=== PATIENT | female | born 1985 | race Caucasian/White ===

== ENCOUNTER 2016-09-20 18:35 | Emergency (ER) | payer MEDICAID, OTHER ==
[~2016-09-20] VITALS: Ht 180.3 cm; Wt 120.7 kg
[~2016-09-20 18:35] MED LIST: CEPHALEXIN500 M2 PO; CIPRO500 MG PO; COLACE100 MG PO; NAPROSYN500 MG PO; NORCO 325 MG-51 TAB PO; PEPCID20 M1 PO; SYNTHROID0.15 M1 PO
[2016-09-20 19:00] VITALS: BP 130/78
--- NOTE | 2016-09-20 19:45 | NUR ---
PATIENT PRESENTS TO ED WITH C/O RT SIDE ABD PAIN AND PAINFUL URINATION . PT DENIES N/V/D; SKIN IS PINK/WARM/DRY; AAOX4 WITH EVEN AND STEADY GAIT; LUNGS CLEAR BL; HR EVEN AND REGULAR; PT DENIES ANY FEVER, CP, SOB, OR COUGH AT THIS TIME; PATIENT STATES PAIN OF 8/10 AT THIS TIME; VSS; PATIENT POSITIONED FOR COMFORT; HOB ELEVATED; BEDRAILS UP X2; BED DOWN. ER MD MADE AWARE OF PT STATUS.
--- NOTE | 2016-09-20 20:22 | NUR ---
PELVIC EXAM BY DR BARKER, PT TOLERATED WELL.
[2016-09-20] MEDS ORDERED: KETOROLAC 60 MG/2 ML VIAL IM ONE (20:25)
--- NOTE | 2016-09-20 21:15 | NUR ---
Patient discharged with v/s stable. Written and verbal after care instructions given and explained. Patient verbalized understanding. Ambulatory with steady gait. All questions addressed prior to discharge. Advised to follow up with PMD. DISCHARGED BY DR BARKER
[2016-09-20 21:24] VITALS: BP 130/78
== END 2016-09-20 21:15 | disposition home or self-care (01) ==
LOC: MED 18:35
DX: N76.0 Acute vaginitis (principal); E03.9 Hypothyroidism, unspecified; Z88.2 Allergy status to sulfonamides; Z88.1 Allergy status to other antibiotic agents
CPT/HCPCS: 36415; 81002; 81025; 87070; 87210; 87491; 96372; 99284; J1885

== ENCOUNTER 2017-01-14 23:46 | Emergency (ER) | payer MEDICAID ==
[~2017-01-14] VITALS: Ht 180.3 cm; Wt 126.6 kg
[~2017-01-14 23:46] MED LIST changes: +ACET-2869 PO; -CEPHALEXIN500 M2 PO; -CIPRO500 MG PO; -COLACE100 MG PO; +DOCU-300 PO; +FAMO-90 PO; -NAPROSYN500 MG PO; -NORCO 325 MG-51 TAB PO; -PEPCID20 M1 PO; -SYNTHROID0.15 M1 PO
[2017-01-15 00:07] VITALS: BP 128/74
--- NOTE | 2017-01-15 00:26 | NUR ---
PT TAKEN TO BED 3
--- NOTE | 2017-01-15 00:40 | NUR ---
31Y F BIB FAMILY C/O LEFT FLANK PAIN RADIATING TO LEFT UPPER QUADRANT X YESTERDAY 0300; +N/V. PT DENIES ANY SOB,CP AT THE MOMENT. PT STATES PAIN IS SHARP. PT AAOX4. BREATHING IS UNLABORED AND CLEAR BILAT. PT STATES SHE TOOK MOTRIN 800MG X2 THIS AM BUT NO RELIEF. 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
[2017-01-15] MEDS ORDERED: KETOROLAC 30 MG/ML VIAL IM ONE (00:50)
[2017-01-15 01:00] LABS: BASOPHILS # (AUTO) 0.3 K/uL (0.00-0.22); BASOPHILS % (AUTO) 2.6 % (0.0-2.0); EOSINOPHILS # (AUTO) 0.2 K/uL (0-0.4); EOSINOPHILS % (AUTO) 1.8 % (0.0-4.0); LYMPHOCYTES # (AUTO) 2.6 K/uL (2.5-16.5); LYMPHOCYTES % (AUTO) 26.3 % (20.5-51.1); MEAN CORPUSCULAR HEMOGLOBIN 27 pg (27-31); MEAN CORPUSCULAR HGB CONC 32 g/dL (33-37); MEAN CORPUSCULAR VOLUME 86 fL (80-94); MONOCYTES # (AUTO) 0.7 K/uL (0.8-1.0); MONOCYTES % (AUTO) 7.2 % (1.7-9.3); NEUTROPHILS % (AUTO) 62.1 % (42.2-75.2); PLATELET COUNT (AUTO) 250 K/uL (140-450); RED BLOOD CELL COUNT(AUTO) 4.77 MIL/uL (4.20-5.40); RED CELL DISTRIBUTION WIDTH 13.4 % (11.6-13.7); WHITE BLOOD COUNT (AUTO) 9.8 K/uL (4.8-10.8)
[2017-01-15 01:02] LABS: APPEARANCE,URINE CLEAR (CLEAR); BILIRUBIN,URINE NEGATIVE (NEGATIVE); BLOOD, URINE 1+ (NEGATIVE); COLOR,URINE YELLOW (YELLOW); LEUKOCYTE ESTERASE ,URINE 2+ (NEGATIVE); NITRITE, URINE NEGATIVE (NEGATIVE); UGLUCOSE NEGATIVE (NEGATIVE)
[2017-01-15 01:15] LABS: ANION GAP 11.3 (8-16); CARBON DIOXIDE 25.6 mmol/L (21-32); POTASSIUM 3.9 mmol/L (3.5-5.1)
[2017-01-15 01:16] LABS: RBC,URINE 3-10 (FEW) /HPF (0-5); WBC,URINE 16-25 (MOD) /HPF (0-5)
[2017-01-15 01:20] LABS: ALBUMIN 3.4 g/dL (3.4-5.0); TOTAL BILIRUBIN 0.1 mg/dL (0.0-1.0)
--- NOTE | 2017-01-15 01:39 | NUR ---
Patient discharged with v/s stable. Written and verbal after care instructions given and explained. Patient alert, oriented and verbalized understanding of instructions. Ambulatory with steady gait. All questions addressed prior to discharge. ID band removed. Patient advised to follow up with PMD. Rx of CIPRO 250MG given. Patient educated on indication of medication including possible reaction and side effects. Opportunity to ask questions provided and answered.
[2017-01-15 01:40] VITALS: BP 117/76
== END 2017-01-15 01:39 | disposition home or self-care (01) ==
LOC: MED 23:46
DX: N39.0 Urinary tract infection, site not specified (principal); E03.9 Hypothyroidism, unspecified; Z88.2 Allergy status to sulfonamides; Z88.8 Allergy status to other drugs, medicaments and biological substances; Z79.899 Other long term (current) drug therapy
CPT/HCPCS: 36415; 80053; 81001; 81025; 85025; 87086; 99284; J1885

== ENCOUNTER 2017-03-08 02:01 | Emergency (ER) | payer MEDICAID ==
[~2017-03-08] VITALS: Ht 185.4 cm; Wt 128.8 kg
[2017-03-08 02:07] VITALS: BP 143/86
--- NOTE | 2017-03-08 02:10 | NUR ---
AMBULATED TO ER BED 2
--- NOTE | 2017-03-08 02:15 | NUR ---
PATIENT IS A 32 Y/O FEMALE WHO PRESENTS TO THE ED C/O PELVIC PAIN. PT STATES, "I WENT TO THE RESTROOM AND TWO PIECES OF PINKISH STUFF CAME OUT." PT REPORTS 7/10 THROBBING PAIN ON THE BACK AND PELVIC AREA THAT DOES NOT RADIATE. PT DENIES CP, SOB, DIARRHEA, REPORTS NAUSEA/DIARRHEA. PT AAOX4, RR EVEN/UNLABORED. PT REPOSITIONED FOR COMFORT, BED IN LOWEST POSITION. ER MD DR. ORTEZ NOTIFIED. WILL CONTINUE TO MONITOR.
[2017-03-08 02:21] LABS: BASOPHILS # (AUTO) 0.4 K/uL (0.00-0.22); BASOPHILS % (AUTO) 3.8 % (0.0-2.0); EOSINOPHILS # (AUTO) 0.1 K/uL (0-0.4); EOSINOPHILS % (AUTO) 0.9 % (0.0-4.0); HEMATOCRIT 43.6 % (36-48); HEMOGLOBIN 14.1 g/dL (12.0-16.0); LYMPHOCYTES # (AUTO) 2.2 K/uL (2.5-16.5); LYMPHOCYTES % (AUTO) 21.8 % (20.5-51.1); MEAN CORPUSCULAR HEMOGLOBIN 28 pg (27-31); MEAN CORPUSCULAR HGB CONC 32 g/dL (33-37); MEAN CORPUSCULAR VOLUME 86 fL (80-94); NEUTROPHILS # (AUTO) 6.2 K/uL (1.8-7.7); NEUTROPHILS % (AUTO) 63.5 % (42.2-75.2); PLATELET COUNT (AUTO) 251 K/uL (140-450); RED BLOOD CELL COUNT(AUTO) 5.07 MIL/uL (4.20-5.40); RED CELL DISTRIBUTION WIDTH 13.2 % (11.6-13.7); WHITE BLOOD COUNT (AUTO) 9.9 K/uL (4.8-10.8)
[2017-03-08 02:33] LABS: ANION GAP 9.6 (8-16); CARBON DIOXIDE 29.2 mmol/L (21-32); CREATININE 0.9 mg/dL (0.6-1.3); POTASSIUM 4.8 mmol/L (3.5-5.1)
[2017-03-08 02:39] LABS: ALBUMIN 3.4 g/dL (3.4-5.0); TOTAL BILIRUBIN 0.2 mg/dL (0.0-1.0)
--- NOTE | 2017-03-08 03:15 | NUR ---
PATIENT RESTING AT THIS TIME. NO SIGNS OF DISTRESS.
[2017-03-08 03:18] LABS: APPEARANCE,URINE SL CLOUDY (CLEAR); BILIRUBIN,URINE NEGATIVE (NEGATIVE); BLOOD, URINE 1+ (NEGATIVE); COLOR,URINE YELLOW (YELLOW); LEUKOCYTE ESTERASE ,URINE NEGATIVE (NEGATIVE); NITRITE, URINE NEGATIVE (NEGATIVE); UGLUCOSE NEGATIVE (NEGATIVE)
[2017-03-08 03:25] LABS: RBC,URINE 11-20 (MOD) /HPF (0-5); WBC,URINE 0-5 (RARE) /HPF (0-5)
[2017-03-08 04:10] VITALS: BP 137/89
--- NOTE | 2017-03-08 04:10 | NUR ---
Patient discharged with v/s stable. Written and verbal after care instructions given and explained. Patient alert, oriented and verbalized understanding of instructions. Ambulatory with steady gait. All questions addressed prior to discharge. ID band removed. Patient advised to follow up with PMD. Rx of TYLENOL EXTRA STRENGTH 500MG given. Patient educated on indication of medication including possible reaction and side effects. Opportunity to ask questions provided and answered.
== END 2017-03-08 04:10 | disposition home or self-care (01) ==
LOC: MED 02:01
DX: O46.91 Antepartum hemorrhage, unspecified, first trimester (principal); E03.9 Hypothyroidism, unspecified; Z3A.01 Less than 8 weeks gestation of pregnancy; Z79.899 Other long term (current) drug therapy; Z88.2 Allergy status to sulfonamides; Z88.8 Allergy status to other drugs, medicaments and biological substances
CPT/HCPCS: 36415; 76801; 80053; 81001; 81025; 84702; 85025; 86900; 86901; 99285; Q0092

== ENCOUNTER 2017-05-16 08:36 | Emergency (ER) | payer MEDICAID ==
[~2017-05-16] VITALS: Ht 180.3 cm; Wt 131.6 kg
[2017-05-16 08:50] VITALS: BP 118/82
--- NOTE | 2017-05-16 08:56 | NUR ---
Pt taken to bed 11.
--- NOTE | 2017-05-16 09:00 | NUR ---
32/F BIB BOYFRIEND c/o awoke with am with bilateral hands orange/yellow, urine smell to them denies contact with dye or food coloring. PT STATED PREG 4 WKS. followed by unit care in [place]. 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 rx---- vitamins, folic acid, calcium, DENIES N/V/D; AAOX4 WITH EVEN AND STEADY GAIT; LUNGS CLEAR BL;PT DENIES ANY FEVER, CP, SOB, OR COUGH AT THIS TIME; PATIENT STATES PAIN OF 0/10 AT THIS TIME;PATIENT POSITIONED FOR COMFORT; HOB ELEVATED; BEDRAILS UP X2; BED DOWN. ER MD MADE AWARE OF PT STATUS.
--- NOTE | 2017-05-16 09:53 | NUR ---
PT TAKEN TO US VIA W/C, ACCOMPANIED BY TECH.
[2017-05-16 10:13] LABS: BASOPHILS # (AUTO) 0.3 K/uL (0.00-0.22); BASOPHILS % (AUTO) 4.2 % (0.0-2.0); EOSINOPHILS # (AUTO) 0.1 K/uL (0-0.4); EOSINOPHILS % (AUTO) 1.3 % (0.0-4.0); HEMATOCRIT 41.7 % (36-48); HEMOGLOBIN 13.7 g/dL (12.0-16.0); LYMPHOCYTES # (AUTO) 1.3 K/uL (2.5-16.5); LYMPHOCYTES % (AUTO) 18.2 % (20.5-51.1); MEAN CORPUSCULAR HEMOGLOBIN 28 pg (27-31); MEAN CORPUSCULAR HGB CONC 33 g/dL (33-37); MEAN CORPUSCULAR VOLUME 85 fL (80-94); MONOCYTES # (AUTO) 0.6 K/uL (0.8-1.0); MONOCYTES % (AUTO) 8.8 % (1.7-9.3); NEUTROPHILS # (AUTO) 4.8 K/uL (1.8-7.7); NEUTROPHILS % (AUTO) 67.5 % (42.2-75.2); PLATELET COUNT (AUTO) 246 K/uL (140-450); RED BLOOD CELL COUNT(AUTO) 4.92 MIL/uL (4.20-5.40); RED CELL DISTRIBUTION WIDTH 13.8 % (11.6-13.7); WHITE BLOOD COUNT (AUTO) 7.1 K/uL (4.8-10.8)
[2017-05-16 10:37] LABS: ANION GAP 12.6 (8-16); CREATININE 0.8 mg/dL (0.6-1.3); POTASSIUM 4.6 mmol/L (3.5-5.1)
[2017-05-16 10:39] LABS: PROTHROMBIN TIME 10.4 secs (10.8-13.4)
[2017-05-16 10:56] LABS: TOTAL BILIRUBIN 0.4 mg/dL (0.0-1.0)
[2017-05-16 10:57] LABS: ALBUMIN 3.2 g/dL (3.4-5.0)
[2017-05-16 12:01] LABS: APPEARANCE,URINE CLOUDY (CLEAR); BILIRUBIN,URINE NEGATIVE (NEGATIVE); BLOOD, URINE TRACE-I (NEGATIVE); COLOR,URINE YELLOW (YELLOW); LEUKOCYTE ESTERASE ,URINE 2+ (NEGATIVE); NITRITE, URINE NEGATIVE (NEGATIVE); PH,URINE 5.5 (5.0-9.0); UGLUCOSE NEGATIVE (NEGATIVE)
[2017-05-16 12:08] VITALS: BP 110/70
--- NOTE | 2017-05-16 12:08 | NUR ---
Patient discharged with v/s stable. Written and verbal after care instructions given and explained. Patient verbalized understanding. Ambulatory with steady gait. All questions addressed prior to discharge. Advised to follow up with PMD.
[2017-05-16 12:57] LABS: RBC,URINE NONE SEEN /HPF (0-5); URINE AMORPHOUS URATE 2+ /HPF (None Seen)
== END 2017-05-16 12:08 | disposition home or self-care (01) ==
LOC: MED 08:36
DX: O26.891 Other specified pregnancy related conditions, first trimester (principal); Z3A.01 Less than 8 weeks gestation of pregnancy; Z88.2 Allergy status to sulfonamides
CPT/HCPCS: 36415; 76801; 80053; 81001; 81025; 83690; 84702; 85025; 85610; 87086; 99285

== ENCOUNTER 2017-07-17 01:51 | Emergency (ER) | payer MEDICAID ==
[~2017-07-17] VITALS: Ht 182.9 cm; Wt 132.7 kg
[2017-07-17 01:55] VITALS: BP 114/74
[2017-07-17] MEDS ORDERED: MORPHINE SULFATE 4 MG/ML SYR IVP ONE (02:30)
[2017-07-17 02:32] LABS: BASOPHILS # (AUTO) 0.3 K/uL (0.00-0.22); BASOPHILS % (AUTO) 3.5 % (0.0-2.0); EOSINOPHILS # (AUTO) 0.1 K/uL (0-0.4); EOSINOPHILS % (AUTO) 1.3 % (0.0-4.0); HEMATOCRIT 39.1 % (36-48); HEMOGLOBIN 12.8 g/dL (12.0-16.0); LYMPHOCYTES # (AUTO) 2.2 K/uL (2.5-16.5); LYMPHOCYTES % (AUTO) 23.1 % (20.5-51.1); MEAN CORPUSCULAR HEMOGLOBIN 27 pg (27-31); MEAN CORPUSCULAR HGB CONC 33 g/dL (33-37); MEAN CORPUSCULAR VOLUME 84 fL (80-94); MONOCYTES # (AUTO) 0.8 K/uL (0.8-1.0); MONOCYTES % (AUTO) 8.3 % (1.7-9.3); NEUTROPHILS # (AUTO) 6.2 K/uL (1.8-7.7); NEUTROPHILS % (AUTO) 63.8 % (42.2-75.2); PLATELET COUNT (AUTO) 278 K/uL (140-450); RED BLOOD CELL COUNT(AUTO) 4.67 MIL/uL (4.20-5.40); WHITE BLOOD COUNT (AUTO) 9.6 K/uL (4.8-10.8)
[2017-07-17 02:37] LABS: APPEARANCE,URINE CLEAR (CLEAR); BILIRUBIN,URINE NEGATIVE (NEGATIVE); BLOOD, URINE TRACE-I (NEGATIVE); COLOR,URINE YELLOW (YELLOW); LEUKOCYTE ESTERASE ,URINE 1+ (NEGATIVE); NITRITE, URINE NEGATIVE (NEGATIVE); UGLUCOSE NEGATIVE (NEGATIVE)
[2017-07-17 02:46] LABS: RBC,URINE 0-5 (RARE) /HPF (0-5)
[2017-07-17 02:46] LABS: ANION GAP 7.6 (8-16); CARBON DIOXIDE 28.1 mmol/L (21-32); POTASSIUM 3.7 mmol/L (3.5-5.1)
[2017-07-17 02:52] LABS: ALBUMIN 3.1 g/dL (3.4-5.0); TOTAL BILIRUBIN 0.1 mg/dL (0.0-1.0)
[2017-07-17 03:46] VITALS: BP 114/74
== END 2017-07-17 03:47 | disposition home or self-care (01) ==
LOC: MED 01:51
DX: N39.0 Urinary tract infection, site not specified (principal); E03.9 Hypothyroidism, unspecified; F17.210 Nicotine dependence, cigarettes, uncomplicated; Z88.2 Allergy status to sulfonamides; Z88.8 Allergy status to other drugs, medicaments and biological substances; Z90.49 Acquired absence of other specified parts of digestive tract
CPT/HCPCS: 36415; 74176; 80053; 81001; 81025; 83690; 85025; 87086; 96374; 99285; J2270

== ENCOUNTER 2017-08-19 09:55 | Emergency (ER) | payer MEDICAID ==
[~2017-08-19] VITALS: Ht 182.9 cm; Wt 135.7 kg
[2017-08-19 10:01] VITALS: BP 142/84
--- NOTE | 2017-08-19 10:10 | NUR ---
PT. CAME IN TO ED W/ C/O BURNING UPON URINATION AND FREQUENCY FOR 2 WEEKS . PT STATES " I WENT TO [facility] 2 WEEKS AGO THEY TOLD ME I HAD A UTI AND GIVEN MICROBID AND KEFLEX , I HAVE NOT FINISHED THE ANTIBIOTICS YET AND I STILL HAVE BURNING WHEN I URINATE, AND SOME DISCOMFORT BUT NO PAIN AT THE MOMENT. ALSO I HAVE BEEN NAUSEAS AND VOMITING FOR 5 DAYS." 0/10 PAIN AT THIS MOMENT. DENIES SOB, DENIES CHEST PAIN, RR EVEN AND UNLABORED.AAOX4. ER MD NOTIFIED. WILL CONTINUE TO MONITOR, SAFETY PRECAUTIONS INITIATED.
--- NOTE | 2017-08-19 10:11 | NUR ---
PT AMB TO ER BED 11
[2017-08-19] MEDS ORDERED: ONDANSETRON 4 MG ODT PO ONE (10:15)
--- NOTE | 2017-08-19 10:24 | NUR ---
pt refused zofran odt; states " i don't feel nauseous rt now" .will continue to monitor pt.
[2017-08-19 10:33] LABS: BILIRUBIN,URINE NEGATIVE (NEGATIVE); BLOOD, URINE 1+ (NEGATIVE); LEUKOCYTE ESTERASE ,URINE TRACE (NEGATIVE); NITRITE, URINE NEGATIVE (NEGATIVE); PH,URINE 6.5 (5.0-9.0); UGLUCOSE NEGATIVE (NEGATIVE)
[2017-08-19 10:34] LABS: COLOR,URINE YELLOW (YELLOW)
[2017-08-19 10:39] LABS: APPEARANCE,URINE HAZY (CLEAR); RBC,URINE 0-5 (RARE) /HPF (0-5); WBC,URINE 0-5 (RARE) /HPF (0-5)
[2017-08-19 11:12] VITALS: BP 142/84
--- NOTE | 2017-08-19 11:12 | NUR ---
Patient discharged with v/s stable. Written and verbal after care instructions given and explained. Patient alert, oriented and verbalized understanding of instructions. Ambulatory with steady gait. All questions addressed prior to discharge. ID band removed. Patient advised to follow up with PMD. Rx of Phenergan given. Patient educated on indication of medication including possible reaction and side effects. Opportunity to ask questions provided and answered.
== END 2017-08-19 11:12 | disposition home or self-care (01) ==
LOC: MED 09:55
DX: O23.41 Unspecified infection of urinary tract in pregnancy, first trimester (principal); O21.8 Other vomiting complicating pregnancy; Z3A.08 8 weeks gestation of pregnancy; E03.9 Hypothyroidism, unspecified; Z88.2 Allergy status to sulfonamides; Z88.8 Allergy status to other drugs, medicaments and biological substances; Z90.49 Acquired absence of other specified parts of digestive tract
CPT/HCPCS: 81001; 81025; 87086; 99284; S0119

== ENCOUNTER 2017-09-08 15:15 | Emergency (ER) | payer MEDICAID ==
[~2017-09-08] VITALS: Ht 182.9 cm; Wt 137.0 kg
[2017-09-08 15:20] VITALS: BP 130/80
--- NOTE | 2017-09-08 15:41 | NUR ---
32Y/F BIB SELF C/O EPIGASTRIC PAIN W/ N/V X 1 DAY. PT STATES SHE IS APPROXIAMTELY 11 WEEKS OB+. G7, P1, A3, L3. AAOX4 WITH EVEN AND STEADY GAIT; PATIENT STATES PAIN OF 6/10 AT THIS TIME; VSS; PATIENT POSITIONED FOR COMFORT; HOB ELEVATED; BEDRAILS UP X1; BED DOWN. ER MD MADE AWARE OF PT STATUS.
[2017-09-08] MEDS ORDERED: NACL 0.9% 1,000 ML IV SCH (15:44)
[2017-09-08] MEDS ORDERED: PROMETHAZINE 25 MG/ML VIAL IM ONE (15:45)
[2017-09-08] MEDS ORDERED: ALUMINUM HYD/MAG/SIMETHICONE 30 ML, DICYCLOMINE HCL LIQUID 20 MG, LIDOCAINE VISCOUS 2% ... PO ONE ×3 (15:45)
[2017-09-08] MEDS ORDERED: ONDANSETRON 4 MG/2 ML VIAL IVP ONE (15:45)
[2017-09-08 16:11] LABS: BASOPHILS # (AUTO) 0.1 K/uL (0.00-0.22); BASOPHILS % (AUTO) 0.7 % (0.0-2.0); EOSINOPHILS # (AUTO) 0.1 K/uL (0-0.4); EOSINOPHILS % (AUTO) 0.9 % (0.0-4.0); HEMATOCRIT 42.7 % (36-48); HEMOGLOBIN 13.9 g/dL (12.0-16.0); LYMPHOCYTES # (AUTO) 2.2 K/uL (2.5-16.5); LYMPHOCYTES % (AUTO) 23.9 % (20.5-51.1); MEAN CORPUSCULAR HEMOGLOBIN 27 pg (27-31); MEAN CORPUSCULAR HGB CONC 33 g/dL (33-37); MEAN CORPUSCULAR VOLUME 83.7 fL (80-94); MONOCYTES # (AUTO) 0.8 K/uL (0.8-1.0); MONOCYTES % (AUTO) 9.3 % (1.7-9.3); NEUTROPHILS # (AUTO) 5.9 K/uL (1.8-7.7); NEUTROPHILS % (AUTO) 65.2 % (42.2-75.2); PLATELET COUNT (AUTO) 278 K/uL (140-450); RED BLOOD CELL COUNT(AUTO) 5.11 MIL/uL (4.20-5.40); RED CELL DISTRIBUTION WIDTH 14.9 % (11.6-13.7); WHITE BLOOD COUNT (AUTO) 9.1 K/uL (4.8-10.8)
[2017-09-08 16:14] LABS: APPEARANCE,URINE HAZY (CLEAR); BILIRUBIN,URINE NEGATIVE (NEGATIVE); BLOOD, URINE 1+ (NEGATIVE); COLOR,URINE YELLOW (YELLOW); LEUKOCYTE ESTERASE ,URINE TRACE (NEGATIVE); NITRITE, URINE NEGATIVE (NEGATIVE); UGLUCOSE NEGATIVE (NEGATIVE)
[2017-09-08 16:23] LABS: ANION GAP 12.7 (8-16); CARBON DIOXIDE 28.4 mmol/L (21-32); CREATININE 0.8 mg/dL (0.6-1.3); POTASSIUM 4.1 mmol/L (3.5-5.1)
[2017-09-08 16:29] LABS: TOTAL BILIRUBIN 0.2 mg/dL (0.0-1.0)
[2017-09-08 16:38] LABS: RBC,URINE 3-10 (FEW) /HPF (0-5); WBC,URINE 0-5 (RARE) /HPF (0-5)
[2017-09-08 17:11] VITALS: BP 119/88
== END 2017-09-08 17:10 | disposition home or self-care (01) ==
LOC: MED 15:15
DX: O99.611 Diseases of the digestive system complicating pregnancy, first trimester (principal); Z3A.11 11 weeks gestation of pregnancy; Z90.89 Acquired absence of other organs; Z88.1 Allergy status to other antibiotic agents; Z88.2 Allergy status to sulfonamides
CPT/HCPCS: 36415; 80053; 81001; 82150; 83690; 85025; 96361; 96372; 96374; 99284; J2405; J2550

== ENCOUNTER 2017-09-28 21:31 | Emergency (ER) | payer MEDICAID ==
[~2017-09-28] VITALS: Ht 182.9 cm; Wt 136.5 kg
[2017-09-28 21:33] VITALS: BP 145/61
--- NOTE | 2017-09-28 21:39 | NUR ---
PT TAKEN TO US VIA WHEELCHAIR
--- NOTE | 2017-09-28 21:40 | NUR ---
Robyn edward in [facility] - 09/28/17 at 2140 by VICK PT TAKEN TO ULTRASOUND
--- NOTE | 2017-09-28 22:02 | NUR ---
PT RETURN FROM ULTRA SOUND TO ER BED 7
--- NOTE | 2017-09-28 22:10 | NUR ---
PATIENT IS A 32 Y/O FEMALE WHO PRESENTS TO THE ED C/O BILATERAL FLANK PAIN. PT STATES SHE IS WITH TWINS AND H/O OF KIDNEY INFECTIONS. PT REPORTS 6/10 ACHING BILATERAL FLANK PAIN THAT DOES NOT RADIATE. PT DENIES BLEEDING. PT DENIES CP, SOB, N/V/D. PT AAOX4, RR EVEN/UNLABORED. PT REPOSITIONED FOR COMFORT, BED IN LOWEST POSITION. ER MD DR. ORTEZ NOTIFIED. WILL CONTINUE TO MONITOR.
[2017-09-28 22:12] LABS: BILIRUBIN,URINE NEGATIVE (NEGATIVE); BLOOD, URINE 1+ (NEGATIVE); COLOR,URINE YELLOW (YELLOW); LEUKOCYTE ESTERASE ,URINE NEGATIVE (NEGATIVE); NITRITE, URINE NEGATIVE (NEGATIVE); UGLUCOSE NEGATIVE (NEGATIVE)
--- NOTE | 2017-09-28 22:13 | NUR ---
Dr. Rizvi evaluating patient at bedside.
[2017-09-28 22:18] LABS: APPEARANCE,URINE SLIGHTLY HAZY (CLEAR)
[2017-09-28 22:22] LABS: RBC,URINE 0-5 (RARE) /HPF (0-5)
[2017-09-28 22:50] LABS: BASOPHILS % (AUTO) 0.2 % (0.0-2.0); EOSINOPHILS # (AUTO) 0.1 K/uL (0-0.4); EOSINOPHILS % (AUTO) 1.1 % (0.0-4.0); HEMATOCRIT 39.3 % (36-48); HEMOGLOBIN 12.8 g/dL (12.0-16.0); LYMPHOCYTES # (AUTO) 1.9 K/uL (2.5-16.5); LYMPHOCYTES % (AUTO) 24.2 % (20.5-51.1); MEAN CORPUSCULAR HEMOGLOBIN 27 pg (27-31); MEAN CORPUSCULAR HGB CONC 33 g/dL (33-37); MEAN CORPUSCULAR VOLUME 83.8 fL (80-94); MONOCYTES # (AUTO) 0.6 K/uL (0.8-1.0); MONOCYTES % (AUTO) 7.9 % (1.7-9.3); NEUTROPHILS # (AUTO) 5.2 K/uL (1.8-7.7); NEUTROPHILS % (AUTO) 66.6 % (42.2-75.2); PLATELET COUNT (AUTO) 250 K/uL (140-450); RED BLOOD CELL COUNT(AUTO) 4.69 MIL/uL (4.20-5.40); RED CELL DISTRIBUTION WIDTH 14.5 % (11.6-13.7); WHITE BLOOD COUNT (AUTO) 7.8 K/uL (4.8-10.8)
[2017-09-28 22:54] LABS: ANION GAP 11.8 (8-16); CARBON DIOXIDE 26.1 mmol/L (21-32); CREATININE 0.7 mg/dL (0.6-1.3); POTASSIUM 3.9 mmol/L (3.5-5.1)
[2017-09-28] MEDS ORDERED: NITROFURANTOIN 100 MG CAP PO ONE (23:15)
[2017-09-28] MEDS ORDERED: ACETAMINOPHEN EXTRA STRENGTH 500 MG TAB PO ONE (23:15)
--- NOTE | 2017-09-28 23:15 | NUR ---
MACROBID NOT AVAILABLE IN [facility]. [place] [place] AND DAYDAY DAVID MADE AWARE. OK TO DC.
[2017-09-28 23:46] VITALS: BP 139/75
--- NOTE | 2017-09-28 23:46 | NUR ---
Patient discharged with v/s stable. Written and verbal after care instructions given and explained. Patient alert, oriented and verbalized understanding of instructions. Ambulatory with steady gait. All questions addressed prior to discharge. ID band removed. Patient advised to follow up with PMD. Rx of TYLENOL EXTRA STRENGTH 500MG AND MACROBID CAPSULE 100MG given. Patient educated on indication of medication including possible reaction and side effects. Opportunity to ask questions provided and answered.
== END 2017-09-28 23:46 | disposition home or self-care (01) ==
LOC: MED 21:31
DX: N39.0 Urinary tract infection, site not specified (principal); E03.9 Hypothyroidism, unspecified; Z88.2 Allergy status to sulfonamides; Z88.8 Allergy status to other drugs, medicaments and biological substances
CPT/HCPCS: 36415; 76802; 80048; 81001; 81025; 84702; 85025; 86900; 86901; 87086; 99285; Q0092

== ENCOUNTER 2017-10-27 22:42 | Emergency (ER) | payer MEDICAID ==
[~2017-10-27] VITALS: Ht 182.9 cm; Wt 139.3 kg
[2017-10-27 22:51] VITALS: BP 156/99
[2017-10-28 00:25] LABS: APPEARANCE,URINE SL CLOUDY (CLEAR); BILIRUBIN,URINE NEGATIVE (NEGATIVE); BLOOD, URINE TRACE-I (NEGATIVE); COLOR,URINE YELLOW (YELLOW); LEUKOCYTE ESTERASE ,URINE 2+ (NEGATIVE); NITRITE, URINE NEGATIVE (NEGATIVE); UGLUCOSE NEGATIVE (NEGATIVE)
[2017-10-28 00:25] LABS: BASOPHILS % (AUTO) 0.3 % (0.0-2.0); EOSINOPHILS # (AUTO) 0.1 K/uL (0-0.4); EOSINOPHILS % (AUTO) 1.2 % (0.0-4.0); HEMATOCRIT 37.9 % (36-48); HEMOGLOBIN 12.4 g/dL (12.0-16.0); LYMPHOCYTES # (AUTO) 2.4 K/uL (2.5-16.5); LYMPHOCYTES % (AUTO) 30.1 % (20.5-51.1); MEAN CORPUSCULAR HEMOGLOBIN 27 pg (27-31); MEAN CORPUSCULAR HGB CONC 33 g/dL (33-37); MEAN CORPUSCULAR VOLUME 81.9 fL (80-94); MONOCYTES # (AUTO) 0.6 K/uL (0.8-1.0); MONOCYTES % (AUTO) 7.3 % (1.7-9.3); NEUTROPHILS # (AUTO) 4.9 K/uL (1.8-7.7); NEUTROPHILS % (AUTO) 61.1 % (42.2-75.2); PLATELET COUNT (AUTO) 252 K/uL (140-450); RED BLOOD CELL COUNT(AUTO) 4.63 MIL/uL (4.20-5.40); RED CELL DISTRIBUTION WIDTH 15.1 % (11.6-13.7)
[2017-10-28 00:36] LABS: CARBON DIOXIDE 25.3 mmol/L (21-32); CREATININE 0.8 mg/dL (0.6-1.3); POTASSIUM 4.3 mmol/L (3.5-5.1)
[2017-10-28 00:43] LABS: ALBUMIN 2.6 g/dL (3.4-5.0); TOTAL BILIRUBIN 0.1 mg/dL (0.0-1.0)
[2017-10-28 00:47] LABS: RBC,URINE 3-10 (FEW) /HPF (0-5); WBC,URINE TOO MANY TO COUNT /HPF (0-5)
[2017-10-28] MEDS ORDERED: cefTRIAXone 2,000 MG in DEXTROSE 5% 100 ML IV ONE (01:50)
[2017-10-28] MEDS ORDERED: cefTRIAXone 2,000 MG VIAL ONE (02:19)
[2017-10-28 03:30] VITALS: BP 145/89
== END 2017-10-28 03:30 | disposition home or self-care (01) ==
LOC: MED 22:42
DX: O23.42 Unspecified infection of urinary tract in pregnancy, second trimester (principal); Z3A.16 16 weeks gestation of pregnancy; Z88.8 Allergy status to other drugs, medicaments and biological substances; Z88.2 Allergy status to sulfonamides; Z90.49 Acquired absence of other specified parts of digestive tract
CPT/HCPCS: 36415; 76815; 80053; 81001; 81025; 84702; 85025; 86900; 86901; 87086; 96365; 99285; J0696; Q0092

== ENCOUNTER 2017-12-28 22:37 | Inpatient (IN) | payer MEDICAID ==
[~2017-12-28] VITALS: Ht 182.9 cm; Wt 163.3 kg
[2017-12-28 23:25] VITALS: BP 125/59
[2017-12-29] MEDS ORDERED: cefTRIAXone 1,000 MG VIAL ONE (00:12)
[2017-12-29] MEDS ORDERED: LIDOCAINE MPF 1% - 5 mL VIAL 5 ML ONE (00:13)
[2017-12-29] MEDS ORDERED: cefTRIAXone 1,000 MG in LIDOCAINE MPF 1% - 5 mL VIAL 2.1 ML IM SCH (00:30)
== END 2017-12-29 07:25 | disposition home or self-care (01) | DRG 566 ==
LOC: MLD 22:55 → EDSTATUS 23:04
PROVIDERS: ADMIT Obstetrics & Gynecology; ATTEND Obstetrics & Gynecology
DX: O23.02 Infections of kidney in pregnancy, second trimester (principal); O30.002 Twin pregnancy, unspecified number of placenta and unspecified number of amniotic sacs, second trimester; Z3A.25 25 weeks gestation of pregnancy
CPT/HCPCS: 81000; 96372; J0696; J2001

== ENCOUNTER 2018-01-28 03:20 | Emergency (ER) | payer MEDICAID ==
[~2018-01-28] VITALS: Ht 182.9 cm; Wt 141.5 kg
[2018-01-28 03:34] VITALS: BP 130/85
--- NOTE | 2018-01-28 03:34 | NUR ---
TO BED # 6 AMBULATORY , REPORT GIVEN TO MARCLEINA MATT
--- NOTE | 2018-01-28 03:42 | NUR ---
PATIENT PRESENTS TO ED WITH ABSCESS ON HER LEFT LABIA, WITH PAIN, SWELLING , REDNESS, WARMTH TO TOUCH FOR 2 DAYS NOW, 31 WEEKS PT DENIES N/V/D; SKIN IS PINK/WARM/DRY; AAOX4 WITH EVEN AND STEADY GAIT; LUNGS CLEAR BL; HR EVEN AND REGULAR; PT DENIES ANY FEVER, CP, SOB, OR COUGH AT THIS TIME; PATIENT STATES PAIN OF 10/10 AT THIS TIME; PATIENT POSITIONED FOR COMFORT; HOB ELEVATED; BEDRAILS UP X2; BED DOWN. ER MD MADE AWARE OF PT STATUS.
--- NOTE | 2018-01-28 03:46 | NUR ---
Dr. Camilo evaluating patient at bedside.
--- NOTE | 2018-01-28 03:56 | NUR ---
Female Data Analytics Developer VERNELL HEWITT accompanied DR NGO female patient for Pelvic Exam.
--- NOTE | 2018-01-28 04:12 | NUR ---
PT TAKEN TO L&D
--- NOTE | 2018-01-28 06:28 | NUR ---
PT RETURN FROM L&D
--- NOTE | 2018-01-28 06:38 | NUR ---
PT BACK FROM L&D TO ER BED 3- AAOX4, CONT C/O VAG PAIN 09/05, PT AMB W/O ASST TO BRP, PRE L&D RN YEE T BABY A140, FHT BABY B145, WITH NO UC'S AT THIS TIME.
[2018-01-28 07:16] VITALS: BP 117/63
== END 2018-01-28 07:16 | disposition home or self-care (01) ==
LOC: MED 03:20 → MLD 04:20 → UNDOADMIN 04:20 → EDSTATUS 04:27 → MED 07:16
DX: O23.43 Unspecified infection of urinary tract in pregnancy, third trimester (principal); Z3A.30 30 weeks gestation of pregnancy; L73.8 Other specified follicular disorders; Z88.1 Allergy status to other antibiotic agents; Z88.2 Allergy status to sulfonamides
CPT/HCPCS: 81025; 99283

== ENCOUNTER 2018-07-08 21:37 | Emergency (ER) | payer MEDICAID, OTHER ==
[~2018-07-08] VITALS: Ht 182.9 cm; Wt 132.4 kg
[2018-07-08 22:15] VITALS: BP 118/67
--- NOTE | 2018-07-08 22:19 | NUR ---
PT AMBULATED TO LOBBY WITH VSS. PROVIDED WITH URINE CUP.
--- NOTE | 2018-07-09 00:01 | NUR ---
PT AMBULATED TO ER BED 07
--- NOTE | 2018-07-09 00:01 | NUR ---
PT AMBULATED TO BED #7
--- NOTE | 2018-07-09 00:10 | NUR ---
SUDDEN ONSET OR RLQ ABD PAIN 11/05. STATES UNABLE TO HAVE BOWEL MOVEMENT AT THIS TIME LAST BM 07/07/17. X4 QUADRANT BOWEL SOUNDS PRESENT. TOOK GAS-RELIEF PILL AT HOME WITHOUT RELIEF. NO CHANGE IN URINATION. AFEBRILE. denies cough, cp, sob, fever at this time.
--- NOTE | 2018-07-09 00:16 | NUR ---
Dr. Rizvi at bedside.
[2018-07-09] MEDS ORDERED: KETOROLAC 60 MG/2 ML VIAL IM ONE (00:35)
--- NOTE | 2018-07-09 01:00 | NUR ---
PT GOING TO CT
[2018-07-09 02:17] VITALS: BP 112/70
--- NOTE | 2018-07-09 02:17 | NUR ---
Patient discharged with v/s stable. Written and verbal after care instructions given and explained. Patient alert, oriented and verbalized understanding of instructions. Ambulatory with steady gait. All questions addressed prior to discharge. ID band removed. Patient advised to follow up with PMD. Rx of mineral oil, lactulose given. Patient educated on indication of medication including possible reaction and side effects. Opportunity to ask questions provided and answered.
== END 2018-07-09 02:17 | disposition home or self-care (01) ==
LOC: MED 21:37
DX: K59.00 Constipation, unspecified (principal); M79.604 Pain in right leg; Z88.1 Allergy status to other antibiotic agents; Z88.2 Allergy status to sulfonamides
CPT/HCPCS: 74176; 81002; 81025; 96372; 99284; J1885

== ENCOUNTER 2018-12-17 20:45 | Emergency (ER) | payer OTHER ==
[~2018-12-17] VITALS: Ht 182.9 cm; Wt 133.8 kg
[2018-12-17 20:48] VITALS: BP 136/73
--- NOTE | 2018-12-17 20:49 | NUR ---
TRIAGE COMPLETE. VSS. OKAY TO WAIT IN LOBBY FOR BED.
--- NOTE | 2018-12-17 21:15 | NUR ---
ATTEMPT TO CALL PT FROM LOBBY, NO RESPONSE
--- NOTE | 2018-12-17 21:20 | NUR ---
ATTEMPT #2 TO CALL PT FROM [facility], NO RESPONSE.
--- NOTE | 2018-12-17 21:25 | NUR ---
ATTEMPT #3 TO CALL PT FROM [facility], NO RESPONSE.
--- NOTE | 2018-12-17 21:30 | NUR ---
LWPATIENT LEFT WITHOUT BEING SEEN BY DR. ORTEZ. NO FURTHER CARE PROVIDED FOR PATIENT.
== END 2018-12-17 21:30 | disposition left against medical advice (07) ==
LOC: MED 20:45
DX: M79.672 Pain in left foot (principal); M79.671 Pain in right foot; Z53.21 Procedure and treatment not carried out due to patient leaving prior to being seen by health care provider

== ENCOUNTER 2019-03-09 16:51 | Emergency (ER) | payer OTHER ==
[~2019-03-09] VITALS: Ht 180.3 cm; Wt 136.1 kg
[2019-03-09 17:11] VITALS: BP 107/62
[2019-03-09 17:52] LABS: BASOPHILS % (AUTO) 0.2 % (0.0-2.0); EOSINOPHILS # (AUTO) 0.1 K/uL (0-0.4); EOSINOPHILS % (AUTO) 0.9 % (0.0-4.0); HEMATOCRIT 40.7 % (36-48); HEMOGLOBIN 12.9 g/dL (12.0-16.0); LYMPHOCYTES # (AUTO) 1.6 K/uL (2.5-16.5); LYMPHOCYTES % (AUTO) 21.3 % (20.5-51.1); MEAN CORPUSCULAR HEMOGLOBIN 25 pg (27-31); MEAN CORPUSCULAR HGB CONC 32 g/dL (33-37); MEAN CORPUSCULAR VOLUME 79.8 fL (80-94); MONOCYTES # (AUTO) 0.7 K/uL (0.8-1.0); MONOCYTES % (AUTO) 9.7 % (1.7-9.3); NEUTROPHILS % (AUTO) 67.9 % (42.2-75.2); PLATELET COUNT (AUTO) 280 K/uL (140-450); RED CELL DISTRIBUTION WIDTH 16.4 % (11.6-13.7); WHITE BLOOD COUNT (AUTO) 7.3 K/uL (4.8-10.8)
[2019-03-09 18:08] LABS: ANION GAP 12.8 (8-16); CARBON DIOXIDE 26.2 mmol/L (21-32); CREATININE 0.9 mg/dL (0.6-1.3)
[2019-03-09 18:14] LABS: ALBUMIN 3.3 g/dL (3.4-5.0); TOTAL BILIRUBIN 0.2 mg/dL (0.0-1.0)
--- NOTE | 2019-03-09 18:50 | NUR ---
Patient ambulated to bed 1. RN evaluating patient at bedside.
[2019-03-09] MEDS ORDERED: KETOROLAC 15 MG/ML VIAL IVP ONE (19:55)
[2019-03-09] MEDS ORDERED: ONDANSETRON 4 MG/2 ML VIAL IVP ONE (19:55)
[2019-03-09] MEDS ORDERED: NACL 0.9% 1,000 ML IV ONE (19:55)
--- NOTE | 2019-03-09 19:55 | NUR ---
PT A&O X4, VERBAL, AMBULATORY, NO SOB/ DISTRESS, WITH C/O GENERALIZED ABD'L PAIN, STATED THAT SHE HAS ABD'L CRAMPING, STABBING PAIN, N/V/ DIARRHEA X3DAYS.
--- NOTE | 2019-03-09 20:44 | NUR ---
PT AT XRAY
[2019-03-09 21:53] VITALS: BP 107/62
--- NOTE | 2019-03-09 21:53 | NUR ---
Patient discharged with v/s stable. Written and verbal after care instructions given and explained. Patient alert, oriented and verbalized understanding of instructions. Ambulatory with steady gait. All questions addressed prior to discharge. ID band removed. Patient advised to follow up with PMD. Rx of ZOFRAN, IMODIUM WAS given. Patient educated on indication of medication including possible reaction and side effects. Opportunity to ask questions provided and answered. PT WAS GIVEN A WORK OFF NOTE PER REQUEST BY BELÉN. PT HAD OT PAIN PRIOR TO D/C .
== END 2019-03-09 21:53 | disposition home or self-care (01) ==
LOC: MED 16:51
DX: A08.4 Viral intestinal infection, unspecified (principal); R11.2 Nausea with vomiting, unspecified; Z88.2 Allergy status to sulfonamides; Z88.1 Allergy status to other antibiotic agents
CPT/HCPCS: 36415; 74022; 80053; 81002; 81025; 85025; 96361; 96374; 96375; 99284; J1885; J2405; J7030